=== PATIENT | male | born 1995 | race Caucasian/White ===

== ENCOUNTER 2019-11-05 20:02 | Emergency (ER) | payer MEDICAID ==
--- NOTE | 2019-11-05 20:51 | EDM.PDOC ---
ED HPI GENERAL MEDICAL PROBLEM - General Chief Complaint: Gastrointestinal Problem Stated Complaint: BLACK AND LOOSE STOOLS Time Seen by Provider: 11/05/19 20:13 Source of Information: Reports: Patient History Limitations: Reports: No Limitations - History of Present Illness INITIAL COMMENTS - FREE TEXT/NARRATIVE: Mr. Rowell is a very pleasant 24-year-old man with a past medical history significant for an exploratory laparotomy with a nephrectomy and possible liver laceration repair in 2017, after he fell 30 feet. Unfortunately, the patient does not know much about what was done during that surgery, performed in [place]. He now presents the ED stating that he has been experiencing soft dark bowel movements for the past 6 months, then had a loose, nearly-diarrhea and nearly- black bowel movement this afternoon. He states that he often feels some rectal urgency, but typically has 2 bowel movements per day. He also reports occasional upper abdominal pain since 2017. The patient states that he has not sought medical evaluation of his symptoms. The patient states that he takes an [id number] antacid medicine (whose name he does not recall), on occasion, to treat his GERD, but he denies taking Pepto-Bismol. Here in the ED, the patient's initial BP is found to be mildly elevated at 142/91, otherwise, he is hemodynamically stable, afebrile, saturating 97% on room air. Other than the bowel bowel movement issue, the patient denies recent fever, chills, sore throat, ear pain, nasal or sinus congestion, cough, dyspnea, chest pain, palpitations, nausea, vomiting, constipation, urinary symptoms, recent weight gain or weight loss, recent bloody bowel movements, recent joint aches, headaches, or rashes. The patient does not have a PCP. Abdomen Pain Score (Numeric/FACES): 2 - Related Data Allergies Allergy/AdvReac Type Severity Reaction Status Date / Time No Known Allergies Allergy Verified 11/05/19 20:20 Past Medical History Gastrointestinal History: Reports: GERD Endocrine/Metabolic History: Reports: Obesity/BMI 30+ - Past Surgical History HEENT Surgical History: Reports: Oral Surgery (wisdom teeth extraction), Tonsillectomy GI Surgical History: Reports: Other (See Below) (Exploratory laparotomy with nephrectomy and possible liver laceration repair, 2017, in [place]) Dermatological Surgical History: Reports: Skin Graft (from right thigh to right groin) Social & Family History - Tobacco Use Smoking Status *Q: Current Every Day Smoker Years of Tobacco use: 5 Packs/Tins Daily: 1 - Caffeine Use Caffeine Use: Reports: None - Alcohol Use Alcohol Use History: No - Recreational Drug Use Recreational Drug Use: No - Living Situation & Occupation Living situation: Reports: Single, with Significant Other (Girlfriend + her son) Occupation: Employed (Construction) ED ROS GENERAL - Review of Systems Review Of Systems: Comprehensive ROS is negative, except as noted in HPI. ED EXAM, GI/ABD - Physical Exam Exam: See Below Exam Limited By: No Limitations General Appearance: Alert, WD/WN, No Apparent Distress Eyes: Bilateral: Normal Appearance, EOMI Ears: Normal External Exam, Hearing Grossly Normal Nose: Normal Inspection Throat/Mouth: Normal Inspection, Normal Lips, Normal Voice, No Airway Compromise Head: Atraumatic, Normocephalic Neck: Normal Inspection, Full Range of Motion Respiratory/Chest: No Respiratory Distress, Lungs Clear, Normal Breath Sounds, No Accessory Muscle Use Cardiovascular: Normal Peripheral Pulses, Regular Rate, Rhythm, No Edema, No Gallop, No JVD, No Murmur, No Rub GI/Abdominal Exam: Normal Bowel Sounds, Soft, Non-Tender, No Organomegaly, No Distention, No Abnormal Bruit, No Mass, Other (Well-healed midline surgical wound, plus a few smaller surgical wounds) (Male) Exam: Deferred Rectal (Males) Exam: Normal Exam, Normal Rectal Tone, Heme - Stool (very dark) Back Exam: Normal Inspection, Full Range of Motion, NT Extremities: Normal Inspection, Normal Range of Motion, No Pedal Edema, Normal Capillary Refill Neurological: Alert, Oriented, Normal Cognition, No Motor/Sensory Deficits Psychiatric: Normal Affect Skin Exam: Warm, Dry, Intact, Normal Color, No Rash Course - Vital Signs Last Recorded V/S: Last Vital Signs Temp 36.5 C 11/05/19 20:16 Pulse 92 11/05/19 20:16 Resp 18 11/05/19 20:16 BP 142/91 H 11/05/19 20:16 Pulse Ox 97 11/05/19 20:16 - Re-Assessments/Exams Free Text/Narrative Re-Assessment/Exam: 11/05/19 20:43 As above, the patient presents with 6 months of soft dark stools, with nearly black near-diarrhea today. On rectal examination, however, while his stool is very dark, it is heme-negative. This indicates that the color of his stool is due to his diet and not due to a GI bleed. No work-up, therefore, is indicated. The patient asked what can be done about his loose bowel movements. Unfortunately, he does not know what was done when he had the exploratory laparotomy in 2017. It may be that they removed some of his colon, and if so, he will chronically suffer from loose bowel movements. I suggested that he try [id number] loperamide. I will also refer him to a PCP so that he can go over his chronic issues. Departure - Departure Time of Disposition: 20:44 Disposition: Home, Self-Care 01 Condition: Good Clinical Impression: Dark stools, Loose bowel movements - Discharge Information *PRESCRIPTION DRUG MONITORING PROGRAM REVIEWED*: Not Applicable *COPY OF PRESCRIPTION DRUG MONITORING REPORT IN PATIENT KAYLEN: Not Applicable Referrals: PCP,None [Primary Care Provider] - Tiffanie Dickens NP [Nurse Practitioner] - Additional Instructions: You were seen in the emergency room for soft dark bowel movements for the past 6 months, with a nearly black loose bowel movement today. On rectal examination, your stools was dark, but it is not due to blood. Something in your diet is causing your stools to be so dark. You may treat your loose bowel movements with [id number] loperamide (Imodium), but be careful with this medicine, as it can easily cause constipation. Follow-up with Tiffanie Dickens NP, or one of the other providers in the clinic, to establish a PCP. If any other problems, please do not hesitate to return to the ER. Sepsis Event Note (ED) - Evaluation Sepsis Screening Result: No Definite Risk - Focused Exam Vital Signs: Vital Signs Temp Pulse Resp BP Pulse Ox 11/05/19 20:16 36.5 C 92 18 142/91 H 97
== END 2019-11-05 20:46 | disposition home or self-care (01) ==
LOC: JD.ED 20:02
DX: R19.5 Other fecal abnormalities (principal); R19.7 Diarrhea, unspecified; E66.9 Obesity, unspecified; F17.210 Nicotine dependence, cigarettes, uncomplicated; Z68.32 Body mass index [BMI] 32.0-32.9, adult
CPT/HCPCS: 99282; 99284